=== PATIENT | female | born 1995 | race Caucasian/White ===

== ENCOUNTER 2017-05-15 20:14 | Emergency (ER) | payer SELFPAY ==
[2017-05-15 20:39] VITALS: RESP 20; O2SAT 100
--- NOTE | 2017-05-15 21:15 | C.PDOC ---
History Of Present Illness Patient is a 22 y/o female who presents to the ED with a complaint of left- sided abdominal and left arm pain for the last 4-5 days. 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 Patient notes back pain and "dark" vision. Denies any injury, cough, trouble breathing, pain, fever, or eating anything due to nausea. Admits to being able to drink water. Patient arrived to country 2 years ago but denies any recent travel. Admits movement worsens pain. No other physical complaints at this time. Chief Complaint (Nursing): Abdominal Pain History Per: Patient, [employer] Bagger, Other (friend) History/Exam Limitations: no limitations Onset/Duration Of Symptoms: Days (4-5 days) Current Symptoms Are (Timing): Still Present Location Of Pain/Discomfort: Other (left side) Radiation Of Pain To:: Back Associated Symptoms: Nausea, Loss Of Appetite, Back Pain. denies: Fever, Vomiting Exacerbating Factors: Movement Recent travel outside of the [place]: No Past Medical History Reviewed: Historical Data, Nursing Documentation, Vital Signs Vital Signs: Last Vital Signs Temp 97.9 F 05/16/17 01:15 Pulse 57 L 05/16/17 01:15 Resp 20 05/16/17 01:15 BP 97/51 L 05/16/17 01:15 Pulse Ox 100 05/16/17 01:15 - Medical History PMH: No Chronic Diseases Surgical History: No Surg Hx Family History: States: No Known Family Hx - Social History Hx Alcohol Use: No Hx Substance Use: No - Immunization History Hx Tetanus Toxoid Vaccination: No Hx Influenza Vaccination: No Hx Pneumococcal Vaccination: No Review Of Systems Constitutional: Positive for: Weakness. Negative for: Fever Eyes: Positive for: Vision Change ("dark" vision) Gastrointestinal: Positive for: Nausea, Abdominal Pain. Negative for: Vomiting Physical Exam - Physical Exam Appears: Well, Non-toxic, In Acute Distress, Other (somnolent) Skin: Normal Color, Warm, Dry, No Rash (to left side of abdomen or chest) Head: Atraumatic, Normacephalic Oral Mucosa: Moist Neck: Other (left sided trapezius tenderness to palpation) Chest: Symmetrical, Tenderness (left side of chest wall; left breast diffusely tender to palpation), Other (left breast normal in appearance, no mass or flunctuance noted) Cardiovascular: Rhythm Regular, No Murmur Respiratory: Normal Breath Sounds, No Rales, No Rhonchi, No Wheezing Gastrointestinal/Abdominal: Soft, No Tenderness Extremity: Other (distal pulses 2+) Neurological/Psych: Oriented x3, Normal Speech, Normal Cognition Additional Physical Exam Comments: Physical exam does not explain degree of discomfort. ED Course And Treatment - Laboratory Results Result Diagrams: 05/15/17 21:40 05/15/17 21:40 O2 Sat by Pulse Oximetry: 100 - CT Scan/US Angio Other Rad Studies (CT/US): Interpreted By Me, Read By Radiologist CT/US Interpretation: This imaging exam was performed at [facility]. EXAM : CT Angiography Chest With Intravenous Contrast. . EXAM DATE/TIME: 2017 9:14 PM. . CLINICAL HISTORY: 22 years old, female; Pain; Chest pain; Left-sided chest pain. . TECHNIQUE: Axial computed tomographic angiography images of the chest with intravenous. contrast using pulmonary embolism protocol. All CT scans at this facility use. one or more dose reduction techniques, viz.: automated exposure control; ma/kV. adjustment per patient size (including targeted exams where dose is matched to. indication; i.e. head) ; or iterative reconstruction technique. MIP reconstructed images were created and reviewed. Coronal and sagittal reformatted images were created and reviewed. . CONTRAST: 100 mL of [id number] administered intravenously. . COMPARISON: No relevant prior studies available. . FINDINGS: . No pulmonary embolism. . No aortic dissection or aneurysm. . No pleural or pericardial effussions. . No pulmonary consolidation. . There is residual thymic tissue in the anterior mediastinum. . . . IMPRESSION: . No acute findings. Medical Decision Making Medical Decision Making: Plan: * EKG * CT Angio * CXR * IV fluids Disposition - Disposition Disposition: HOME/ ROUTINE Disposition Time: 23:45 Condition: FAIR Prescriptions: Cyclobenzaprine [Cyclobenzaprine HCl] 5 mg PO TID PRN #15 tab PRN Reason: Pain, Moderate (4-7) Naproxen [Naprosyn] 500 mg PO BID #20 tablet Instructions: Cervical Radiculopathy (ED), Neck Exercises (GEN), Chest Wall Pain (ED) Forms: [facility] (I[place]ic) - Clinical Impression Clinical Impression: Cervical radiculopathy, Chest wall pain - Scribe Statement The provider has reviewed the documentation as recorded by the Scribe Leigh Ann Henriquez All medical record entries made by the Scribe were at my direction and personally dictated by me. I have reviewed the chart and agree that the record accurately reflects my personal performance of the history, physical exam, medical decision making, and the department course for this patient. I have also personally directed, reviewed, and agree with the discharge instructions and disposition.
[2017-05-15 21:46] LABS: BASO # 0.1 K/uL (0.0-0.2); EOS # 0.2 K/uL (0.0-0.7); EOS % 1.7 % (0.0-4.0); HEMOGLOBIN 11.4 g/dL (11.0-16.0); LYMPH % 18.7 % (20.0-40.0); MEAN CELL VOLUME 77.2 fL (81.0-99.0); MEAN CORPUSCULAR HEMOGLOBIN 25.1 pg (27.0-31.0); MEAN CORPUSCULAR HGB CONC 32.5 g/dL (33.0-37.0); MONO # 0.5 K/uL (0.0-0.8); MONO % 4.4 % (0.0-10.0); NEUT # 8.1 K/uL (1.8-7.0); NEUT % 74.2 % (50.0-75.0); NRBC % 0.1 % (0.0-2.0); RBC 4.53 Mil/uL (3.80-5.20); RED CELL DISTRIBUTION WIDTH 16.6 % (11.5-14.5); WHITE BLOOD COUNT 10.9 K/uL (4.8-10.8)
[2017-05-15 21:56] LABS: ALB/GLOB RATIO 1.3 (1.0-2.1); ALBUMIN 4.4 g/dL (3.5-5.0); ALT/SGPT 20 U/L (9-52); AST/SGOT 18 U/L (14-36); BLOOD UREA NITROGEN 15 mg/dL (7-17); GFR AFRICAN-AMERICAN > 60; GFR NON-AFRICAN AMERICAN > 60
[2017-05-15] MEDS ORDERED: Iodixanol 320 MG/ML 100 ML BOTTLE IV ONE (22:34)
--- NOTE | 2017-05-15 23:28 | CT ---
EXAM: CT Angiography Chest With Intravenous Contrast EXAM DATE/TIME: 05/15/2017 9:14 PM CLINICAL HISTORY: 22 years old, female; Pain; Chest pain; Left-sided chest pain TECHNIQUE: Axial computed tomographic angiography images of the chest with intravenous contrast using pulmonary embolism protocol. All CT scans at this facility use one or more dose reduction techniques, viz.: automated exposure control; ma/kV adjustment per patient size (including targeted exams where dose is matched to indication; i.e. head); or iterative reconstruction technique. MIP reconstructed images were created and reviewed. Coronal and sagittal reformatted images were created and reviewed. CONTRAST: 100 mL of [id number] administered intravenously. COMPARISON: No relevant prior studies available. FINDINGS: No pulmonary embolism. No aortic dissection or aneurysm. No pleural or pericardial effussions. No pulmonary consolidation. There is residual thymic tissue in the anterior mediastinum. IMPRESSION: No acute findings.
[2017-05-16 01:55] VITALS: BP 97/51; PULSE 57; TEMP 97.9
--- NOTE | 2017-05-16 08:46 | RAD ---
HISTORY: chest pain COMPARISON: No prior. TECHNIQUE: Chest PA and lateral FINDINGS: LUNGS: No active pulmonary disease. PLEURA: No significant pleural effusion identified. No pneumothorax apparent. CARDIOVASCULAR: Normal. OSSEOUS STRUCTURES: No significant abnormalities. VISUALIZED UPPER ABDOMEN: Normal. OTHER FINDINGS: None. IMPRESSION: No active disease.
--- NOTE | 2017-05-16 22:19 | CARD ---
APPROVED REPORT EKG Measurement Heart [id number] <Conclusion> Normal sinus rhythm Normal ECG
== END 2017-05-16 01:15 | disposition home or self-care (01) ==
LOC: C.ER 20:14
DX: M54.12 Radiculopathy, cervical region (principal); R07.89 Other chest pain
CPT/HCPCS: 71046; 71275; 80053; 85025; 93005; 96374; 99285; J1885; Q9967